=== PATIENT | male | born 1965 | race Caucasian/White ===

== ENCOUNTER 2016-05-08 10:43 | Outpatient (CLI) | payer OTHER | END 2016-05-08 10:44 | disposition home or self-care (01) | DX: M23.222 Derangement of posterior horn of medial meniscus due to old tear or injury, left knee (principal); M25.562 Pain in left knee ==

== ENCOUNTER 2016-06-14 10:44 | Day surgery (SDC) | payer OTHER ==
[2016-06-14] MEDS ORDERED: LACTATED RINGERS 1,000 ML IV ONE (11:08)
[2016-06-14] MEDS ORDERED: ceFAZolin 2 GM/50 ML 50 ML IV ONE (11:19)
[2016-06-14] MEDS ORDERED: BUPIVACAINE 0.5%-EPI 1:200000 PF 30 ML VIAL SUBQ ONE ×2 (14:45)
[2016-06-14] MEDS ORDERED: PROPOFOL 200 MG/20 ML VIAL IVP ONE (15:00)
[2016-06-14] MEDS ORDERED: ONDANSETRON 4 MG/2 ML VIAL IVP ONE (15:00)
[2016-06-14] MEDS ORDERED: DEXAMETHASONE 4 MG/ML VIAL IVP ONE (15:00)
[2016-06-14] MEDS ORDERED: MIDAZOLAM 2 MG/2 ML VIAL IVP ONE (15:00)
[2016-06-14] MEDS ORDERED: fentaNYL 100 MCG/2 ML VIAL IVP ONE (15:00)
[2016-06-14] MEDS ORDERED: LIDOCAINE-MPF 2% 5 ML VIAL IM ONE (15:00)
[2016-06-14] MEDS ORDERED: KETOROLAC 30 MG/ML VIAL IVP ONE (15:00)
== END 2016-06-14 10:45 | disposition home or self-care (01) ==
PROC: 0SBD4ZZ Excision of Left Knee Joint, Percutaneous Endoscopic Approach (ICD-10-PCS; principal; 2016-06-14 11:45)
DX: S83.242A Other tear of medial meniscus, current injury, left knee, initial encounter (principal); M67.52 Plica syndrome, left knee; E11.9 Type 2 diabetes mellitus without complications; Z79.4 Long term (current) use of insulin; Z79.84 Long term (current) use of oral hypoglycemic drugs; G47.30 Sleep apnea, unspecified; Z88.2 Allergy status to sulfonamides; E78.5 Hyperlipidemia, unspecified; I10 Essential (primary) hypertension
CPT/HCPCS: 29881; J0690; J7120

== ENCOUNTER 2020-09-05 14:01 | Outpatient (CLI) | payer OTHER | END 2020-09-05 14:02 | disposition short-term general hospital (02) | LOC: EMS 14:01 | DX: R23.1 Pallor (principal); R61 Generalized hyperhidrosis; R11.0 Nausea; I95.9 Hypotension, unspecified | CPT/HCPCS: A0425; A0427 ==